=== PATIENT | female | born 1965 | race Caucasian/White ===

== ENCOUNTER 2025-04-08 06:07 | Day surgery (SDC) | payer MEDICARE, OTHER, SELFPAY ==
[2025-04-08 07:30] VITALS: BP 137/80
[2025-04-08 07:57] VITALS: BMI 45.5
[2025-04-08 07:58] VITALS: BMI 45.5
[2025-04-08 09:09] VITALS: BP 115/67
[2025-04-08 09:15] VITALS: BP 118/64
[2025-04-08 09:30] VITALS: BP 132/80
[2025-04-08 09:45] VITALS: BP 119/62
== END 2025-04-08 10:00 | disposition home or self-care (01) ==
LOC: GI 06:07
PROVIDERS: ATTENDING PHYSICIAN Internal Medicine Gastroenterology
DX: K52.9 Noninfective gastroenteritis and colitis, unspecified (principal); K62.89 Other specified diseases of anus and rectum; K57.30 Diverticulosis of large intestine without perforation or abscess without bleeding
CPT/HCPCS: 45380; 88305